=== PATIENT | female | born 2000 | race Caucasian/White ===

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

== ENCOUNTER 2021-12-21 01:25 | Emergency (ER) | payer OTHER ==
[~2021-12-21] VITALS: Ht 162.6 cm; Wt 53.2 kg
[2021-12-21 02:28] LABS: BASO % 0.3 % (0.0-2.0); EOS # 0.1 K/mm3 (0.0-0.7); EOS % 1.2 % (0.0-4.0); GRAN # 2.8 K/mm3 (1.4-6.5); GRAN % 47.2 % (42.2-75.2); HEMATOCRIT 38.4 % (37.0-47.0); HEMOGLOBIN 12.9 g/dl (12.5-16.0); LYMPH # 2.6 K/mm3 (1.2-3.4); LYMPH % 43.8 % (20.0-51.0); MEAN CELL VOLUME 79 fl (80.0-100.0); MEAN CORPUSCULAR HEMOGLOBIN 26 pg (27-31); MEAN CORPUSCULAR HGB CONC 34 g/dl (33.0-37.0); MEAN PLATELET VOLUME 10.8 fl (7.4-10.4); MONO # 0.4 K/mm3 (0.1-0.6); MONO % 7.3 % (1.7-9.3); PLATELET COUNT 337 K/mm3 (130-400); RED BLOOD COUNT 4.88 M/mm3 (4.10-5.30); REDCELL DISTRIBUTION WIDTH-CV 12.9 % (11.5-14.5)
[2021-12-21 02:28] LABS: COLLECTION METHOD CLEAN CATCH
[2021-12-21 02:39] LABS: SQUAMOUS EPITHELIAL 0-2 /hpf (0-10); URINE BACTERIA None Seen /hpf (NONE SEEN)
[2021-12-21 02:42] LABS: PH 6 (5-8); URINE APPEARANCE Clear (CLEAR/HAZY); URINE COLOR Yellow (YELLOW); URINE GLUCOSE Negative (NEGATIVE); URINE KETONE Negative (NEGATIVE); URINE NITRATE Negative (NEGATIVE); URINE PROTEIN(semi-quant) Negative (NEGATIVE); URINE UROBILINOGEN 0.2 (NEGATIVE)
[2021-12-21 02:43] LABS: ALBUMIN 4.1 gm/dL (3.5-5.0); BILIRUBIN,TOTAL 0.2 mg/dL (0.2-1.2); CALCIUM 9.1 mg/dL (8.4-10.2); CREATININE, serum 0.83 mg/dL (0.57-1.11); POTASSIUM 3.7 mmol/L (3.5-4.5); TOTAL PROTEIN 7.6 gm/dL (6.2-8.1)
[2021-12-21 02:43] LABS: URINE BLOOD 1+ (NEGATIVE)
[2021-12-21] MEDS ORDERED: PEPCID 20MG TAB20 MG PO (03:17)
[2021-12-21 03:42] VITALS: BP 122/93; PULSE 70; TEMP 97.9
== END 2021-12-21 03:45 | disposition home or self-care (01) ==
LOC: COL.ER 01:25
PROVIDERS: Emergency Medicine
DX: R10.9 Unspecified abdominal pain (principal); Z91.040 Latex allergy status; Z32.02 Encounter for pregnancy test, result negative